=== PATIENT | male | born 1975 | race Caucasian/White ===

== ENCOUNTER → 2024-04-19 06:22 | Day surgery (SDC) | payer BC, SELFPAY | LOC: GI 06:22 | PROVIDERS: ATTENDING PHYSICIAN Student in an Organized Health Care Education/Training Program | DX: Z12.11 Encounter for screening for malignant neoplasm of colon (principal); Z80.0 Family history of malignant neoplasm of digestive organs; K62.89 Other specified diseases of anus and rectum | CPT/HCPCS: G0105 ==

== ENCOUNTER → 2024-12-27 16:28 | Outpatient (REF) | payer BC, SELFPAY | LOC: RAD 16:28 | PROVIDERS: ATTENDING PHYSICIAN Family Medicine; FAMILY PHYSICIAN Physician Assistant Medical | DX: S63.259A Unspecified dislocation of unspecified finger, initial encounter (principal) | CPT/HCPCS: 73140 ==